=== PATIENT | male | born 1980 | race Caucasian/White ===

== ENCOUNTER 2017-11-26 10:26 | Emergency (ER) | payer OTHER ==
[~2017-11-26] VITALS: Ht 185.4 cm; Wt 140.6 kg
[2017-11-26] MEDS ORDERED: ZANTAC 150MG T150 MG PO (10:35)
[2017-11-26] MEDS ORDERED: IBUPROFEN 800800 M1 PO (11:40)
[2017-11-26] MEDS ORDERED: TRAMADOL 50 MG50 MG PO (11:50)
[2017-11-26 11:53] VITALS: BP 176/80
== END 2017-11-26 11:55 | disposition home or self-care (01) ==
LOC: M.ERS 10:26
DX: S93.602A Unspecified sprain of left foot, initial encounter (principal); K21.9 Gastro-esophageal reflux disease without esophagitis; Z88.8 Allergy status to other drugs, medicaments and biological substances; X58.XXXA Exposure to other specified factors, initial encounter; Y93.39 Activity, other involving climbing, rappelling and jumping off; Y92.89 Other specified places as the place of occurrence of the external cause; Y99.8 Other external cause status

== ENCOUNTER 2021-02-08 13:17 | Emergency (ER) | payer OTHER ==
[~2021-02-08] VITALS: Ht 185.4 cm; Wt 127.0 kg
[~2021-02-08 13:17] MED LIST: IBUPROFEN 800800 M1 PO; TRAMADOL 50 MG50 MG PO; ZANTAC 150MG T150 MG PO
[2021-02-08 13:35] LABS: ABSOLUTE LYMPHOCYTES 0.7 thou/uL (0.8-5.3); ABSOLUTE MONOCYTES 0.3 thou/uL (0.0-1.2); ABSOLUTE NEUTROPHILS 3.8 thou/uL (1.6-8.1); BASOPHILS 0.7 %; EOSINOPHILS 0.3 %; HEMATOCRIT 40.4 % (42.0-52.0); HEMOGLOBIN 14.2 gm/dL (14.0-18.0); LYMPHOCYTES 14.1 %; MCH 30.6 pg (26.0-34.0); MCHC 35.1 g/dL (28.0-37.0); MCV 87.3 fL (80.0-100.0); MONOCYTES 6.2 %; MPV 9.1 fl. (7.2-11.1); NUCLEATED RBCS 0 /100WBC; PLATELET COUNT* 156 thou/uL (150-400); POLYS 78.7 %; RBC 4.62 mil/uL (4.50-6.00); RDW-CV 13.1 % (10.5-14.5); WBC 4.8 thou/uL (4.0-11.0)
[2021-02-08 13:43] LABS: CREATININE 0.9 mg/dL (0.6-1.3); POTASSIUM 3.6 mmol/L (3.5-5.1)
[2021-02-08 13:45] LABS: APTT 25.4 Seconds (25.0-31.3); PROTIME 10.5 Seconds (9.20-11.50)
[2021-02-08 13:57] LABS: ALBUMIN 4.3 g/dL (3.4-5.0); CK-MB MASS 0.8 ng/mL (<0.5-3.6); TOTAL BILIRUBIN 0.7 mg/dL (<0.1-1.0); TOTAL PROTEIN 7.9 g/dL (6.4-8.2)
[2021-02-08] MEDS ORDERED: VENTOLIN HFA 1818 GM INH (14:23)
[2021-02-08 14:42] VITALS: BP 135/70
--- NOTE | 2021-02-08 14:52 | EKG ---
[place] [address] ELECTROCARDIOGRAM REPORT Name: MONISHA PADRON Room: [facility]#: [id number] Admission: 02/08/21 Attend Phys: Discharge: 02/08/21 Date of : 82 Date of Service: 02/08/21 1321 Report #: [id number] THIS REPORT FOR: //name// [facility] ED Test Date: 2021-02-08 Test Time: 13:21:37 Pat Name: MONISHA KINGNCO Department: Room: Gender: Supervisor Line Department: SHEFALI : 1980 Requested By: Jhony Castle Order Number: [id number] MD: David Ramírez Measurements Intervals [place] Rate: 101 P: 51 OK: 208 QRS: 33 QRSD: 121 T: 52 QT: 350 QTc: 454 Interpretive Statements Sinus tachycardia Prolonged OK interval IVCD, consider incomplete right bundle lauren block No previous ECG available for comparison Electronically Signed On 02-08-2021 14:52:26 CDT by David Ramírez [email or web address] <ELECTRONICALLY SIGNED> By: David Ramírez MD, [facility] 02/08/21 1452 1321 1321 David Ramírez MD, [facility] /EPI
== END 2021-02-08 14:43 | disposition home or self-care (01) ==
LOC: M.ERS 13:17
PROVIDERS: Family Medicine
DX: F41.0 Panic disorder [episodic paroxysmal anxiety] (principal); K21.9 Gastro-esophageal reflux disease without esophagitis; Z88.8 Allergy status to other drugs, medicaments and biological substances

== ENCOUNTER 2021-05-28 18:37 | Emergency (ER) | payer OTHER ==
[~2021-05-28] VITALS: Ht 185.4 cm; Wt 136.1 kg
[~2021-05-28 18:37] MED LIST changes: +VENTOLIN HFA 1818 GM INH
[2021-05-28] MEDS ORDERED: NP THYROID60 MG PO (18:49)
[2021-05-28 20:25] LABS: ABSOLUTE LYMPHOCYTES 0.6 thou/uL (0.8-5.3); ABSOLUTE MONOCYTES 0.3 thou/uL (0.0-1.2); ABSOLUTE NEUTROPHILS 2.2 thou/uL (1.6-8.1); BASOPHILS 0.4 %; EOSINOPHILS 0.2 %; HEMATOCRIT 43.9 % (42.0-52.0); HEMOGLOBIN 15.3 gm/dL (14.0-18.0); LYMPHOCYTES 19.3 %; MCH 29.7 pg (26.0-34.0); MCHC 34.8 g/dL (28.0-37.0); MCV 85.2 fL (80.0-100.0); MONOCYTES 10.4 %; MPV 8.8 fl. (7.2-11.1); NUCLEATED RBCS 0 /100WBC; PLATELET COUNT* 119 thou/uL (150-400); POLYS 69.7 %; RBC 5.15 mil/uL (4.50-6.00); WBC 3.1 thou/uL (4.0-11.0)
[2021-05-28 20:29] LABS: CALCIUM 8.4 mg/dL (8.5-10.1); POTASSIUM 3.7 mmol/L (3.5-5.1)
[2021-05-28 20:33] LABS: ALBUMIN 4.3 g/dL (3.4-5.0); TOTAL BILIRUBIN 0.6 mg/dL (<0.1-1.0); TOTAL PROTEIN 7.9 g/dL (6.4-8.2)
[2021-05-28] MEDS ORDERED: HYDROCODONE-CH115 ML PO (22:25)
[2021-05-28] MEDS ORDERED: XANAX 1 MG TABLE1 MG PO ×2 (22:25→23:15)
[2021-05-28] MEDS ORDERED: PROAIR HFA8.5 GM INH ×2 (22:25→23:15)
[2021-05-28 22:40] VITALS: BP 111/61
--- NOTE | 2021-05-29 10:48 | EKG ---
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[place] : 1980 Requested By: Priscila Pandey Order Number: [id number] MD: Bud Corona Measurements Intervals [place] Rate: 88 P: 20 NV: 166 QRS: 8 QRSD: 121 T: 47 QT: 376 QTc: 455 Interpretive Statements Sinus rhythm Right bundle branch block Baseline wander in lead(s) II,III,aVL,aVF Compared to ECG 02/08/2021 13:21:37 Sinus tachycardia no longer present First degree AV block no longer present Electronically Signed On 05-29-2021 10:48:32 CDT by Bud Corona [email or web address] <ELECTRONICALLY SIGNED> By: Bud Corona MD, FACC 05/29/21 1048 99 99 Bud Corona MD, FAC /EPI
== END 2021-05-28 22:41 | disposition home or self-care (01) ==
LOC: M.ERS 18:37
PROVIDERS: Emergency Medicine
DX: U07.1 COVID-19 (principal); J12.82 Pneumonia due to coronavirus disease 2019; R06.02 Shortness of breath; F41.9 Anxiety disorder, unspecified; K21.9 Gastro-esophageal reflux disease without esophagitis; Z79.51 Long term (current) use of inhaled steroids; Z79.899 Other long term (current) drug therapy; Z88.8 Allergy status to other drugs, medicaments and biological substances

== ENCOUNTER 2021-05-31 11:55 | Emergency (ER) | payer OTHER ==
[~2021-05-31 11:55] MED LIST changes: +HYDROCODONE-CH115 ML PO; +NP THYROID60 MG PO; +PROAIR HFA8.5 GM INH; +XANAX 1 MG TABLE1 MG PO
[2021-06-01] MEDS ORDERED: HYDROXYZINE HCL25 M2 PO (19:37)
== END 2021-05-31 12:25 | disposition left against medical advice (07) ==
LOC: M.ERS 11:55
DX: R53.1 Weakness (principal); Z53.21 Procedure and treatment not carried out due to patient leaving prior to being seen by health care provider

== ENCOUNTER 2021-06-01 18:14 | Emergency (ER) | payer OTHER ==
[~2021-06-01] VITALS: Ht 185.4 cm; Wt 131.5 kg
[2021-06-01] MEDS ORDERED: HYDROXYZINE HCL25 M2 PO (19:37)
[2021-06-01 19:55] VITALS: BP 130/80
== END 2021-06-01 19:56 | disposition home or self-care (01) ==
LOC: M.ERS 18:14
DX: F41.9 Anxiety disorder, unspecified (principal); K21.9 Gastro-esophageal reflux disease without esophagitis; Z79.899 Other long term (current) drug therapy; Z88.6 Allergy status to analgesic agent